=== PATIENT | female | born 1950 ===

== ENCOUNTER 2017-08-29 09:46 | Outpatient (CLI) | payer MEDICARE ==
--- NOTE | 2017-08-29 12:01 | Mammography Report ---
Screening mammogram: Routine views demonstrate a heterogeneous and generally symmetrically distributed fibroglandular pattern. There are bilateral asymmetries which are marked on the mammograms. It is unclear as to whether the same asymmetries are seen on both CC and lateral views of each breast. No other findings. CAD used. Impression: Bilateral asymmetries. Recommendation: This patient's prior exams are being requested for comparison. Following comparison any additional evaluation will be recommended. BI-RADS CATEGORY: 0 = Needs additional imaging evaluation ACR BI-RADS MAMMOGRAPHIC CODES: 0 = Needs additional imaging evaluation; 1 = Negative; 2 = Benign; 3 = Probably benign; 4 = Suspicious; 5 = Malignant; 6 = Known biopsy-proven malignancy COMMENT: 1. Dense breast tissue, i.e., adenosis, fibrocystic changes, etc., may obscure an underlying neoplasm. 2. Approximately 10% of cancers are not detected with mammography. 3. A negative mammography report should not delay biopsy if a clinically suspicious mass is present.
== END 2017-08-29 09:47 | disposition home or self-care (01) ==
LOC: SPVWC 09:46
PROVIDERS: ATTEND Family Medicine
DX: Z12.31 Encounter for screening mammogram for malignant neoplasm of breast (principal)
CPT/HCPCS: 77067; G0202